=== PATIENT | male | born 1990 | race Caucasian/White ===

== ENCOUNTER 2017-05-31 17:12 | Emergency (ER) | payer OTHER ==
[~2017-05-31] VITALS: Ht 172.7 cm; Wt 92.5 kg
[2017-05-31] MEDS ORDERED: CYCLOBENZAPRINE HCL 10 MG TAB PO ONE (19:00)
[2017-05-31 20:22] VITALS: BP 133/72
== END 2017-05-31 20:23 | disposition home or self-care (01) ==
LOC: ER 17:19
DX: S13.4XXA Sprain of ligaments of cervical spine, initial encounter (principal); V49.49XA Driver injured in collision with other motor vehicles in traffic accident, initial encounter; Y93.89 Activity, other specified; Y92.488 Other paved roadways as the place of occurrence of the external cause; Y99.8 Other external cause status
CPT/HCPCS: 72125